=== PATIENT | female | born 1935 | race Caucasian/White ===

== ENCOUNTER 2021-06-03 13:17 | Outpatient (CLI) | payer MEDICARE, OTHER ==
[2021-06-03] MEDS ORDERED: CIPR500T4 PO (14:20)
[2021-06-03] MEDS ORDERED: ESTR30CR VG (14:20)
[2021-06-03] MEDS ORDERED: MIRA50TA PO (14:20)
[2021-06-03] MEDS ORDERED: HYDR-826 PO (14:20)
[2021-06-03] MEDS ORDERED: METO25TA35 PO (14:20)
[2021-06-03] MEDS ORDERED: DOCU-131 PO (14:20)
[2021-06-03] MEDS ORDERED: LEVO88TA4 PO (14:20)
[2021-06-03] MEDS ORDERED: APIX5TAB PO (14:20)
[2021-06-03] MEDS ORDERED: CEPH-375 PO (14:20)
[2021-06-03] MEDS ORDERED: HYDR-3248 PO (14:20)
[2021-06-03] MEDS ORDERED: LOSA50TA14 PO (14:20)
[2021-06-03] MEDS ORDERED: OMEP-110 PO (14:20)
[2021-06-03 14:59] LABS: BASOPHILS % (AUTO) 1 % (0-1); EOSINOPHILS % (AUTO) 4 % (1-7); LYMPHOCYTES % (AUTO) 21 % (22-44); MEAN CORPUSCULAR HEMOGLOBIN 31.7 pg (27.0-34.8); MEAN CORPUSCULAR HGB CONC 33.7 g/dL (32.4-35.8); MONOCYTES % (AUTO) 11 % (2-9); NEUTROPHILS % (AUTO) 63 % (42-75); PLATELET COUNT 282 x10^3/uL (130-400); RED BLOOD COUNT 4.54 x10^6/uL (3.82-5.3); RED CELL DISTRIBUTION WIDTH 14.2 % (9.6-15.2)
[2021-06-03 15:03] LABS: MICROSCOPIC AUTO
[2021-06-03 15:05] LABS: INTERNATIONAL NORMALIZED RATIO 1.01 (0.93-1.1); PROTHROMBIN TIME 10.8 Seconds (9.6-11.5)
[2021-06-03 15:06] LABS: ALANINE AMINOTRANSFERASE 17 U/L (12-78); ALBUMIN 3.8 g/dL (3.4-5.0); ANION GAP 7 mmol/L (5-15); CALCIUM 9.1 mg/dL (8.5-10.1); CHLORIDE 109 mmol/L (98-107); CREATININE 1.22 mg/dL (0.55-1.02)
[2021-06-03 15:08] LABS: ALKALINE PHOSPHATASE 75 U/L (45-117); TOTAL PROTEIN 7.5 g/dL (6.4-8.2)
== END 2021-06-03 23:59 | disposition home or self-care (01) ==
LOC: STAR 13:17
PROVIDERS: ATTEND Urology
DX: Z01.818 Encounter for other preprocedural examination (principal); R39.82 Chronic bladder pain; I48.91 Unspecified atrial fibrillation; I45.10 Unspecified right bundle-branch block; Z20.822 Contact with and (suspected) exposure to COVID-19
CPT/HCPCS: 80053; 81001; 85025; 85610; 87086; 87635; 93005

== ENCOUNTER 2021-06-10 13:17 | Day surgery (SDC) | payer MEDICARE, OTHER ==
[2021-06-03 14:20] VITALS: BP 171/99
[~2021-06-10] VITALS: Ht 147.3 cm; Wt 72.5 kg
[~2021-06-10 13:17] MED LIST: APIX5TAB PO; CEPH-375 PO; CIPR500T4 PO; DOCU-131 PO; ESTR30CR VG; HYDR-3248 PO; HYDR-826 PO; LEVO88TA4 PO; LOSA50TA14 PO; METO25TA35 PO; MIRA50TA PO; OMEP-110 PO
[2021-06-10] MEDS ORDERED: CHLORHEXIDINE 15 ML UDC ONE (13:42)
[2021-06-10] MEDS ORDERED: LACTATED RINGERS 1,000 ML IV SCH (14:00)
[2021-06-10] MEDS ORDERED: CHLORHEXIDINE 15 ML UDC PO ONE ×2 (14:00→14:30)
[2021-06-10 14:24] VITALS: BP 171/99
[2021-06-10] MEDS ORDERED: FENTANYL PF 100 MCG/2ML ONE (15:15)
[2021-06-10] MEDS ORDERED: LIDOCAINE-MPF 2% ,5ML ONE (15:17)
[2021-06-10] MEDS ORDERED: OPIUM/BELLADONNA SUPP.RECT 16.2-30 MG ONE (15:28)
[2021-06-10] MEDS ORDERED: OXYcodone 5 MG/5 ML ORAL.SOL UDC PO PRN (15:30)
[2021-06-10] MEDS ORDERED: LABETALOL 5MG/ML, 20ML IV PRN (15:30)
[2021-06-10] MEDS ORDERED: FENTANYL PF 100 MCG/2ML IV PRN (15:30)
[2021-06-10] MEDS ORDERED: ACETAMINOPHEN 325 MG TABLET PO PRN (15:30)
[2021-06-10] MEDS ORDERED: HYDROmorphone 1 MG/ML, 1ML INJ IVPush PRN (15:30)
[2021-06-10] MEDS ORDERED: ONDANSETRON 2MG/ML, 2ML IVPush PRN (15:30)
[2021-06-10] MEDS ORDERED: EPHEDRINE 50 MG/ML, 1ML IVPush PRN (15:30)
[2021-06-10] MEDS ORDERED: PROMETHAZINE 25 MG/ML, 1ML IVPush PRN (15:30)
[2021-06-10] MEDS ORDERED: hydrALAzine 20 MG/ML, 1ML IV PRN (15:30)
[2021-06-10] MEDS ORDERED: CEFAZOLIN 1,000 MG ONE (15:58)
[2021-06-10] MEDS ORDERED: PROPOFOL 10 MG/ML, 20ML ONE (15:58)
[2021-06-10] MEDS ORDERED: DEXAMETHASONE 4 MG/ML, 1ML ONE (15:58)
[2021-06-10] MEDS ORDERED: ONDANSETRON 2MG/ML, 2ML ONE (15:58)
[2021-06-10] MEDS ORDERED: PHENAZOPYRIDINE 200 MG TABLET ONE (16:54)
[2021-06-10] MEDS ORDERED: PHENAZOPYRIDINE 200 MG TABLET PO ONE (17:00)
== END 2021-06-10 18:30 | disposition home or self-care (01) ==
LOC: OUT 13:17
PROVIDERS: ATTEND Urology
DX: N30.20 Other chronic cystitis without hematuria (principal); N39.41 Urge incontinence; N90.7 Vulvar cyst; I10 Essential (primary) hypertension; I48.91 Unspecified atrial fibrillation; E03.9 Hypothyroidism, unspecified; F32.9 Major depressive disorder, single episode, unspecified; Z79.01 Long term (current) use of anticoagulants; Z79.890 Hormone replacement therapy; Z79.891 Long term (current) use of opiate analgesic; Z79.899 Other long term (current) drug therapy; Z88.0 Allergy status to penicillin; Z88.5 Allergy status to narcotic agent
CPT/HCPCS: 52204; 88305; J0690; J1100; J2405; J2704; J3010; J7120